=== PATIENT | female | born 1980 | race African-American/Black ===

== ENCOUNTER 2024-07-01 15:06 | Emergency (ER) | payer MEDICAID, OTHER ==
[~2024-07-01] VITALS: Ht 160 cm; Wt 76.0 kg
[2024-07-01 15:15] VITALS: TEMP 98.6; O2SAT 99
[2024-07-01] MEDS ORDERED: TIZA2CAP7 MT (15:47)
[2024-07-01] MEDS ORDERED: TRAZ-251 MT (15:47)
[2024-07-01] MEDS ORDERED: DULO60CA64 MT (15:48)
[2024-07-01] MEDS ORDERED: FAMO20TA8 MT (15:48)
[2024-07-01] MEDS ORDERED: AMIT10TA6 MT (15:50)
[2024-07-01] MEDS ORDERED: ONDA4TAB50 MT (15:50)
[2024-07-01] MEDS ORDERED: MELO-106 MT (15:51)
[2024-07-01 16:24] VITALS: BP 130/84; PULSE 124; RESP 16; O2SAT 98
== END 2024-07-01 19:30 | disposition home or self-care (01) ==
LOC: ER 15:06
DX: T76.21XA Adult sexual abuse, suspected, initial encounter (principal); F32.9 Major depressive disorder, single episode, unspecified; Z79.899 Other long term (current) drug therapy; X58.XXXA Exposure to other specified factors, initial encounter; Z88.1 Allergy status to other antibiotic agents
CPT/HCPCS: 99283